=== PATIENT | male | born 1960 | race Caucasian/White ===

== ENCOUNTER 2017-07-06 17:52 | Inpatient (IN) | payer BC ==
[~2017-07-06] VITALS: Ht 190.5 cm; Wt 99.3 kg
[2017-07-06 18:22] LABS: APPEARANCE,URINE Clear (CLEAR); BILIRUBIN,URINE Small (NEGATIVE); COLOR,URINE Dark Yellow (YELLOW); GLUCOSE, URINE (UA) Negative (NEGATIVE); KETONES,URINE Negative (NEGATIVE); LEUKOCYTE ESTERASE ,URINE Moderate (NEGATIVE); NITRATE,URINE Positive (NEGATIVE); OCCULT BLOOD,URINE Negative (NEGATIVE); PROTEIN,URINE POS 2+ (NEGATIVE)
[2017-07-06] MEDS ORDERED: SODIUM CHLORIDE 0.9% 1000ML 2,000 ML IV ONE (18:24)
[2017-07-06 18:28] LABS: BASOPHILS % (AUTO) 0.2 % (0.0-5.0); HEMATOCRIT 35.9 % (42-54); LYMPHOCYTES % (AUTO) 5.3 % (21.0-51.0); MEAN CORPUSCULAR HEMOGLOBIN 29.4 pg (27.0-33.0); MEAN CORPUSCULAR HGB CONC 34.5 g/dL (32.0-36.0); MEAN CORPUSCULAR VOLUME 85.3 fL (79-99); MONOCYTES % (AUTO) 5.4 % (3.0-13.0); NEUTROPHILS % (AUTO) 89.1 % (40.0-77.0); PLATELET COUNT (AUTO) 221 K/uL (130-400); RED BLOOD CELL COUNT(AUTO) 4.21 MIL/uL (4.50-6.20); RED CELL DISTRIBUTION WIDTH 13.1 % (11.0-15.5)
[2017-07-06 18:33] LABS: BACTERIA,URINE Few /HPF (None Seen); RBC,URINE 0-1 /HPF (0-1); SQUAMOUS EPITHELIAL CELL,UR Rare /HPF (0-2); WBC,URINE 26-50 /HPF (0-1)
[2017-07-06 18:38] LABS: CREATININE 1.3 mg/dL (0.5-1.5); POTASSIUM 3.5 mmol/L (3.5-5.1)
[2017-07-06 18:41] LABS: INR 1.33 (0.85-1.15); PARTIAL THROMBOPLASTIN TIME 34.9 SEC (26.3-35.5); PROTHROMBIN TIME 13.9 SEC (9.6-11.6)
[2017-07-06 18:54] LABS: ALBUMIN 3.1 g/dL (3.5-5.0); CREATINE KINASE MB 0.7 ng/mL (0.5-3.6); TOTAL PROTEIN, SERUM 7.4 g/dL (6.0-8.3); TROPONIN I 0.44 ng/mL (0.00-0.06)
[2017-07-06] MEDS ORDERED: MEROPENEM 1 GM VIAL ONE (19:01)
[2017-07-06] MEDS ORDERED: SODIUM CHLORIDE 0.9% 1000ML 1,000 ML IV ONE ×2 (20:12→22:43)
[2017-07-06] MEDS ORDERED: ONDANSETRON HCL MDV 20ML 2 MG/ML VIAL ONE (21:43)
[2017-07-06] MEDS: SODIUM CHLORIDE 0.9% 1000ML 1,000 ML IV SCH (22:15)
[2017-07-06] MEDS ORDERED: ZOSYN 3.375GM+NS 50ML 50 ML IV SCH (22:15)
[2017-07-06 22:33] VITALS: BP 122/70
[2017-07-06] MEDS ORDERED: TAMS-1 PO (22:40)
[2017-07-06] MEDS ORDERED: CEFTRIAXONE 2GM+NS 100ML 100 ML IV SCH (22:45)
[2017-07-07] MEDS: CEFTRIAXONE SODIUM 2 GM VIAL IVP SCH (01:11)
[2017-07-07 04:00] VITALS: BP 124/69
[2017-07-07] MEDS ORDERED: ONDANSETRON HCL MDV 20ML 2 MG/ML VIAL IVP PRN (05:00)
[2017-07-07] MEDS ORDERED: ACETAMINOPHEN 325 MG TAB PO PRN ×2 (05:00)
[2017-07-07 06:22] LABS: HEMATOCRIT 33.2 % (42-54); MEAN CORPUSCULAR HEMOGLOBIN 29.4 pg (27.0-33.0); MEAN CORPUSCULAR HGB CONC 34.7 g/dL (32.0-36.0); MEAN CORPUSCULAR VOLUME 84.6 fL (79-99); PLATELET COUNT (AUTO) 178 K/uL (130-400); RED BLOOD CELL COUNT(AUTO) 3.92 MIL/uL (4.50-6.20); RED CELL DISTRIBUTION WIDTH 12.9 % (11.0-15.5); WHITE BLOOD COUNT (AUTO) 10.5 K/uL (4.8-10.8)
[2017-07-07 06:38] LABS: CREATININE 1.1 mg/dL (0.5-1.5); POTASSIUM 3.6 mmol/L (3.5-5.1)
[2017-07-07 07:51] VITALS: BP 128/71
[2017-07-07] MEDS: TAMSULOSIN HCL 0.4 MG CAP.ER.24H PO SCH (08:16)
[2017-07-07] MEDS: ENOXAPARIN SODIUM 40 MG/0.4 ML SYRINGE SQ SCH (08:16)
[2017-07-07] MEDS ORDERED: MEROPENEM 1GM IVPB PREMIXED 1 GM IV SCH (09:00)
[2017-07-07] MEDS ORDERED: PHARMACY COMMUNICATION MISC SCH (09:00)
[2017-07-07 09:05] LABS: CREATINE KINASE MB < 0.5 ng/mL (0.5-3.6); CREATINE KINASE, TOTAL 69 U/L (21-232); MYOGLOBIN 47 ng/mL (10-92); TROPONIN I 0.31 ng/mL (0.00-0.06)
[2017-07-07] MEDS ORDERED: IBUPROFEN 400 MG TABLET PO PRN (09:30)
[2017-07-07] MEDS: MEROPENEM 1 GM VIAL IVP SCH ×2 (09:37→17:23)
[2017-07-07] MEDS: NAPROXEN 500 MG TABLET PO SCH ×2 (09:38→21:18)
[2017-07-07 11:34] VITALS: BP 125/59
[2017-07-07] MEDS ORDERED: IOPAMIDOL-370 75 ML VIAL IV ONE (14:16)
[2017-07-07 15:19] LABS: CREATINE KINASE MB 0.7 ng/mL (0.5-3.6)
[2017-07-07 15:21] LABS: TROPONIN I 0.78 ng/mL (0.00-0.06)
[2017-07-07] MEDS: METOPROLOL TARTRATE 25 MG TAB PO SCH ×2 (15:30→21:00)
[2017-07-07] MEDS ORDERED: ASPIRIN 325MG EC TAB 325 MG TABLET.DR PO ONE (15:30)
[2017-07-07 16:00] VITALS: BP 117/67
[2017-07-07] MEDS: SODIUM CHLORIDE 0.9% 1000ML 1,000 ML IV SCH (16:05)
[2017-07-07 20:00] VITALS: BP 121/70
[2017-07-07 20:55] LABS: CREATINE KINASE MB 0.7 ng/mL (0.5-3.6); TROPONIN I 0.33 ng/mL (0.00-0.06)
[2017-07-08] VITALS (7 sets, daily range): BP systolic 108–129; BP diastolic 59–82
[2017-07-08] MEDS: CEFTRIAXONE SODIUM 2 GM VIAL IVP SCH (01:34)
[2017-07-08] MEDS: MEROPENEM 1 GM VIAL IVP SCH ×4 (01:34→23:34)
[2017-07-08] MEDS: SODIUM CHLORIDE 0.9% 1000ML 1,000 ML IV SCH ×2 (04:51→08:38)
[2017-07-08 06:05] LABS: HEMATOCRIT 32.9 % (42-54); MEAN CORPUSCULAR HEMOGLOBIN 30.4 pg (27.0-33.0); MEAN CORPUSCULAR HGB CONC 35.5 g/dL (32.0-36.0); MEAN CORPUSCULAR VOLUME 85.8 fL (79-99); PLATELET COUNT (AUTO) 167 K/uL (130-400); RED BLOOD CELL COUNT(AUTO) 3.83 MIL/uL (4.50-6.20); WHITE BLOOD COUNT (AUTO) 4.9 K/uL (4.8-10.8)
[2017-07-08 06:25] LABS: CARBON DIOXIDE 26 mmol/L (21-32); CHLORIDE 107 mmol/L (101-111); CHOLESTEROL 163 mg/dL (<200); CREATINE KINASE MB < 0.5 ng/mL (0.5-3.6); CREATINE KINASE, TOTAL 54 U/L (21-232); GLOMERULAR FILTR. RATE CALC 82 mL/min (>60); GLUCOSE,RANDOM 132 mg/dL (70-105); HDL CHOLESTEROL 13 mg/dL (29-71); LDL DIRECT 115 mg/dL (0-99); MYOGLOBIN 54 ng/mL (10-92); POTASSIUM 3.7 mmol/L (3.5-5.1); SODIUM SERUM 140 mmol/L (136-145); TRIGLYCERIDES 158 mg/dL (30-200); TROPONIN I 0.21 ng/mL (0.00-0.06); UREA NITROGEN, BLOOD 10 mg/dL (7-18)
[2017-07-08 06:29] LABS: HEMOGLOBIN A1C 6.4 % (4.0-6.0)
[2017-07-08] MEDS: TAMSULOSIN HCL 0.4 MG CAP.ER.24H PO SCH (08:36)
[2017-07-08] MEDS: NAPROXEN 500 MG TABLET PO SCH ×2 (08:36→21:49)
[2017-07-08] MEDS: ENOXAPARIN SODIUM 40 MG/0.4 ML SYRINGE SQ SCH (08:37)
[2017-07-08] MEDS: METOPROLOL TARTRATE 25 MG TAB PO SCH (08:38)
[2017-07-08] MEDS ORDERED: ASPIRIN 81MG TAB.CHEW PO SCH (09:00)
[2017-07-08] MEDS ORDERED: ASPI-1005 PO (16:14)
[2017-07-08] MEDS ORDERED: NAPR-1023 PO (16:14)
[2017-07-08] MEDS ORDERED: AMOX-429 PO (16:14)
[2017-07-08] MEDS ORDERED: TAMS-1 PO (16:14)
[2017-07-08] MEDS ORDERED: LISI-613 PO (16:16)
[2017-07-08] MEDS ORDERED: ATOR10TA PO (16:38)
[2017-07-08] MEDS ORDERED: TAMSULOSIN HCL 0.4 MG CAP.ER.24H PO SCH (21:00)
== END 2017-07-09 00:05 | disposition home or self-care (01) | DRG 872 ==
LOC: EDH 17:52 → EDHIP 19:49 → 4AH 22:32
PROVIDERS: ADMIT Internal Medicine Nephrology; ATTEND Internal Medicine Nephrology
DX: A41.9 Sepsis, unspecified organism (principal); L40.50 Arthropathic psoriasis, unspecified; N39.0 Urinary tract infection, site not specified; N41.0 Acute prostatitis; E11.9 Type 2 diabetes mellitus without complications; E78.5 Hyperlipidemia, unspecified; N40.1 Benign prostatic hyperplasia with lower urinary tract symptoms; N41.9 Inflammatory disease of prostate, unspecified; Z88.8 Allergy status to other drugs, medicaments and biological substances; B96.89 Other specified bacterial agents as the cause of diseases classified elsewhere
CPT/HCPCS: 36415; 71045; 74178; 80048; 80053; 80061; 81001; 82550; 82553; 83036; 83605; 83735; 83874; 84484; 85025; 85027; 85610; 85730; 87040; 87088; 93005; A4218; J0696; J1650; J2185; J7030; Q9967

== ENCOUNTER → 2017-07-12 | Outpatient (CLI) | payer BC ==
[~2017-07-12] MED LIST: AMOX-429 PO; ASPI-1005 PO; ATOR10TA PO; NAPR-1023 PO; TAMS-1 PO
== END | disposition home or self-care (01) ==
LOC: RAH 11:16
PROVIDERS: ATTEND Urology
DX: N40.1 Benign prostatic hyperplasia with lower urinary tract symptoms (principal); R39.12 Poor urinary stream
CPT/HCPCS: 76857

== ENCOUNTER 2023-03-16 07:23 | Day surgery (SDC) | payer BC ==
[2023-03-06 14:30] VITALS: BP 135/90; PULSE 91; RESP 21
[2023-03-06 14:38] LABS: BASOPHILS # (AUTO) 0.06 K/uL (0.00-0.20); BASOPHILS % (AUTO) 0.7 % (0.0-5.0); EOSINOPHILS # (AUTO) 0.06 K/uL (0.00-0.70); EOSINOPHILS % (AUTO) 0.7 % (0.0-8.0); HEMATOCRIT 38.1 % (42-54); IMMATURE GRANULOCYTE ABSOLUTE 0.05 K/uL (0-1); LYMPHOCYTES # (AUTO) 2.1 K/uL (1.0-4.8); LYMPHOCYTES % (AUTO) 22.7 % (21.0-51.0); MEAN CORPUSCULAR HEMOGLOBIN 29.5 pg (27.0-33.0); MEAN CORPUSCULAR HGB CONC 32.5 g/dL (32.0-36.0); MEAN CORPUSCULAR VOLUME 90.5 fL (79-99); MONOCYTES # (AUTO) 0.6 K/uL (0.1-1.0); MONOCYTES % (AUTO) 6.3 % (3.0-13.0); NEUTROPHILS # (AUTO) 6.2 K/uL (1.8-7.7); PLATELET COUNT (AUTO) 268 K/uL (130-400); RED BLOOD CELL COUNT(AUTO) 4.21 MIL/uL (4.50-6.20); RED CELL DISTRIBUTION WIDTH 12.4 % (11.0-15.5)
[2023-03-06 14:47] LABS: INR < 0.93 (0.85-1.15); PROTHROMBIN TIME 10.6 SEC (9.6-11.6)
[2023-03-06 14:48] LABS: PARTIAL THROMBOPLASTIN TIME 29.6 SEC (26.3-35.5); POTASSIUM 4.1 mmol/L (3.5-5.1)
[2023-03-07 09:33] LABS: APPEARANCE,URINE CLEAR (CLEAR); BILIRUBIN,URINE NEGATIVE (NEGATIVE); COLOR,URINE LIGHT-YELLOW (YELLOW); GLUCOSE, URINE (UA) NEGATIVE (NEGATIVE); KETONES,URINE NEGATIVE (NEGATIVE); LEUKOCYTE ESTERASE ,URINE NEGATIVE Leu/uL (NEGATIVE); NITRATE,URINE NEGATIVE (NEGATIVE); OCCULT BLOOD,URINE NEGATIVE (NEGATIVE); PROTEIN,URINE NEGATIVE (NEGATIVE); UROBILINOGEN,URINE 0.2 mg/dL (0.2-1.0)
[2023-03-07 09:47] LABS: ADD UA MICROSCOPIC NO
[~2023-03-16] VITALS: Ht 190.5 cm; Wt 95.8 kg
[2023-03-16] VITALS (18 sets, daily range): BP systolic 124–141; BP diastolic 70–80; PULSE 43–78; RESP 9–16
[~2023-03-16 07:23] MED LIST changes: +AEC81 PO; -AMOX-429 PO; +APRE30TA5 PO; -ASPI-1005 PO; -ATOR10TA PO; +DOXA2TAB2 PO; +DOXA4TAB3 PO; +FINA-37 PO; +METF-444 PO; -NAPR-1023 PO; +ROSU5TAB12 PO; -TAMS-1 PO
[2023-03-16] MEDS ORDERED: 0.9%NACL 1000ML 1,000 ML IV ONE (08:04)
[2023-03-16] MEDS ORDERED: CEFTRIAXONE 1G VIAL ONE (08:04)
[2023-03-16] MEDS ORDERED: LEVO-70 PO (08:20)
[2023-03-16] MEDS ORDERED: PROPOFOL 10 MG/ML 20ML VIAL IV ONE (09:29)
[2023-03-16] MEDS ORDERED: LIDOCAINE PF 100MG/5ML (2%) SYRINGE 5ML ONE (09:29)
[2023-03-16] MEDS ORDERED: MIDAZOLAM HCL 1 MG/ML 2ML VIAL ONE (09:29)
[2023-03-16] MEDS ORDERED: FENTANYL CITRATE PF 50 MCG/1 ML 2ML VIAL ONE (09:30)
[2023-03-16] MEDS ORDERED: CEFTRIAXONE 1G VIAL IVPB ONE (09:46)
[2023-03-16] MEDS ORDERED: EPHEDRINE SULFATE 50 MG/ML AMPULE ONE (10:27)
[2023-03-16] MEDS ORDERED: ONDANSETRON 4MG INJ ONE (11:35)
[2023-03-16] MEDS ORDERED: MEPERIDINE-PF 25 MG/ML SYG ONE (11:36)
[2023-03-16] MEDS ORDERED: NEOMY SULF/BACITRAC ZN/POLY OINT 30GM TUBE TP ONE (12:55)
== END 2023-03-16 13:35 | disposition home or self-care (01) ==
LOC: DAH 07:23
PROVIDERS: ATTEND Urology
DX: N40.1 Benign prostatic hyperplasia with lower urinary tract symptoms (principal); N21.0 Calculus in bladder; R33.8 Other retention of urine; N32.89 Other specified disorders of bladder; E78.5 Hyperlipidemia, unspecified; E11.9 Type 2 diabetes mellitus without complications; Z79.899 Other long term (current) drug therapy; Z79.01 Long term (current) use of anticoagulants; Z98.890 Other specified postprocedural states; Z79.82 Long term (current) use of aspirin; Z79.84 Long term (current) use of oral hypoglycemic drugs; Z85.46 Personal history of malignant neoplasm of prostate
CPT/HCPCS: 71045; 80048; 85025; 85610; 85730; 36415 ×2; 93005; 87088; 81003; 52648; 82948; 82360; 88305; 52234; A6260; A4663; J7030 ×2; A4354; J3010; J2001; J3490; J0696 ×2; J2250; J2704; J2405; J2175; A4358; A4930; A4215; A4223; A4222; A4221; A4600